=== PATIENT | female | born 1975 | race Caucasian/White ===

== ENCOUNTER 2016-07-17 21:47 | Emergency (ER) | payer BC ==
[~2016-07-17] VITALS: Ht 157.5 cm; Wt 78.0 kg
[2016-07-17 22:16] LABS: NEG OBC UR NEG; POS OBC UR POS
--- NOTE | 2016-07-17 22:19 | ED.ADGEN ---
Past Medical History Past Medical History: No Pertinent History Past Surgical History: No Surgical History Alcohol Use: None Drug Use: None Adult General Chief Complaint Chief Complaint: HIP PAIN HPI HPI Patient is a 41 year old woman, with no significant past medical history, who presents to the emergency department with a complaint of right-sided lower back pain, radiating into her right leg, occurring intermittently over the past 3 weeks. Patient denies any injuries, any weakness numbness or tingling, any abdominal pain, any urinary complaints, any chest pain or shortness breath, any fevers or chills, denies any previous symptoms. 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 She states that the pain is worse after activity, that occasionally is located only in her lower back and buttock area, but occasionally radiates down into her right lateral leg , into her knee, describes it as a sharp sensation. No changes in bowel or bladder control, no other complaints. She states she's been using a Profen intermittently for pain, last dose of either Profen was last night. Denies any drugs, alcohol or cigarettes, no recent travel or surgery. No other concerning history or activities reported. Review of Systems Review of Systems Constitutional: Denies fever or chills. [] Eyes: Denies change in visual acuity. [] HENT: Denies nasal congestion or sore throat. [] Respiratory: Denies cough or shortness of breath. [] Cardiovascular: Denies chest pain or edema. [] GI: Denies abdominal pain, nausea, vomiting, bloody stools or diarrhea. [] : Denies dysuria. [] Musculoskeletal: Right-sided lower back pain radiating into the right lower extremity. Integument: Denies rash. [] Neurologic: Denies headache, focal weakness or sensory changes. [] Endocrine: Denies polyuria or polydipsia. [] Lymphatic: Denies swollen glands. [] Psychiatric: Denies depression or anxiety. [] Current Medications Current Medications Current Medications Medications (Trade) Dose Ordered Sig/Tanja Start Time Stop Time Status Last Admin Dose Admin Cyclobenzaprine HCl (Flexeril) 10 mg 1X ONCE 07/17/16 22:30 07/17/16 22:31 DC 07/17/16 22:23 10 MG Naproxen (Naprosyn) 250 mg 1X ONCE 07/17/16 22:30 07/17/16 22:31 DC 07/17/16 22:24 250 MG Allergies Allergies Allergies Coded Allergies Type Severity Reaction Last Updated Verified No Known Drug Allergies 07/17/16 No Physical Exam Physical Exam Constitutional: Well developed, well nourished, no acute distress, non-toxic appearance. [] HENT: Normocephalic, atraumatic, bilateral external ears normal, oropharynx moist, no oral exudates, nose normal. [] Eyes: PERRLA, EOMI, conjunctiva normal, no discharge. [] Neck: Normal range of motion, no tenderness, supple, no stridor. [] Cardiovascular:Heart rate regular rhythm, no murmur, S1, S2, rubs or gallops. [] Lungs & Thorax: Bilateral breath sounds clear to auscultation , no wheezing, rhonchi, rales. No chest wall tenderness or crepitus. [] Abdomen: Bowel sounds normal, soft, no tenderness, no rebound, rigidity, no guarding, no masses, no pulsatile masses. [] Skin: Warm, dry, no erythema, no rash. [] Back: No no midline tenderness, no step-offs or deformities, no CVA tenderness. [Patient with tenderness palpation in the puriform us region, and in the paraspinal muscles in the lower lumbar spine on the right, reproducible pain with palpitation of the form us. Extremities: No tenderness, no cyanosis, no clubbing, ROM intact, no edema. [] Neurologic: Alert and oriented X 3, normal motor function, normal sensory function, no focal deficits noted. [] Psychologic: Affect normal, judgement normal, mood normal. [] Current Patient Data Vital Signs Vital Signs Date Time Temp Pulse Resp B/P Pulse Ox O2 Delivery O2 Flow Rate FiO2 07/17/16 22:00 97.8 80 16 159/79 97 Room Air 97.8 Lab Values Laboratory Tests Test 07/17/16 22:04 Urine Collection Type Unknown Urine Color Yellow Urine Clarity Clear Urine pH 5.5 Urine Specific [place] 1.025 Urine Protein Negativemg/dL (NEG-TRACE) Urine Glucose (UA) Negativemg/dL (NEG) Urine Ketones (Stick) Negativemg/dL (NEG) Urine Blood Trace (NEG) Urine Nitrite Negative (NEG) Urine Bilirubin Negative (NEG) Urine Urobilinogen Dipstick 0.2mg/dL (0.2 mg/dL) Urine Leukocyte Esterase Negative (NEG) Urine RBC 0/HPF (0-2) Urine WBC 0/HPF (0-4) Urine Squamous Epithelial Cells Few/LPF Urine Bacteria Few/HPF (0-FEW) Urine Mucus Marked/LPF Urine Test Negative (NEG) EKG EKG Not indicated. [] Radiology/Procedures Radiology/Procedures Lumbar spine: Three-view: Patient with evidence of degenerative changes, no acute fracture, volume loss, spacing abnormalities, subluxation, soft tissue or bony abnormalities identified. As interpreted by me. [] Course & Med Decision Making Course & Med Decision Making Pertinent Labs and Imaging studies reviewed. (See chart for details) Patient's examination and history is consistent with right-sided sciatica. No concerning history identified base of the patient's report, however due to the length of duration of symptoms, over 3 weeks, although has been intermittent, will obtain x-ray. Patient's test is negative, urinalysis reveals trace blood, which is consistent with patient's report that she is beginning her menses, which have been irregular over the past 2 months. Patient received cyclobenzaprine and and naproxen in the ED, states that she is feeling slightly better and reevaluation. X-ray reveals evidence of degenerative changes, with no acute fracture or other concerning findings identified. I did discuss these findings with patient, she'll be contacted via telephone if any new concerning findings are identified by radiology over read. Importance of following up with her primary care provider for additional evaluation, and potential physical therapy discussed in detail patient at bedside, as stated patient is ambulating without difficulty in the ED, and is agreeable to this plan. Will return to the ED if any new or concerning symptoms develop. Patient discharged home with prescription for cyclobenzaprine, naproxen, and plan as above. Dragon Disclaimer Dragon Disclaimer This electronic medical record was generated, in whole or in part, using a voice recognition dictation system. Departure Impression: Primary Impression: Acute right-sided back pain with sciatica Disposition: HOME, SELF-CARE Condition: IMPROVED Scripts Naproxen 250 Mg [id number] Mg PO BID PRN PAIN #10 Prov:FREDERIC CALVIN DO 07/17/16 Cyclobenzaprine Hcl 10 Mg [id number] Mg PO TID PRN PAIN #12 TAB Prov:FREDERIC CALVIN DO 07/17/16 FREDERIC CALVIN DO Jul 17, 2016 22:19
[2016-07-17 22:23] LABS: BILIRUBIN,URINE NEGATIVE (NEG); GLUCOSE,URINE NEGATIVE (NEG); NITRITE,URINE NEGATIVE (NEG); PH,URINE 5.5; PROTEIN,URINE NEGATIVE (NEG-TRACE); UROBILINOGEN,URINE 0.2 mg/dL (0.2 mg/dL)
[2016-07-17 22:27] LABS: BACTERIA,URINE FEW /HPF (0-FEW); RBC,URINE 0 /HPF (0-2); SQUAMOUS EPITHELIAL CELL,UR FEW /LPF; WBC,URINE 0 /HPF (0-4)
[2016-07-17] MEDS ORDERED: CYCLOBENZAPRINE 10 MG TABLET. PO ONE (22:30)
[2016-07-17] MEDS ORDERED: NAPROXEN 250 MG TABLET PO ONE (22:30)
[2016-07-17] MEDS ORDERED: NAPR250T2 PO (22:33)
[2016-07-17] MEDS ORDERED: CYCL10TA2 PO (22:33)
[2016-07-17 22:59] VITALS: BP 115/69
--- NOTE | 2016-07-18 11:10 | RAD ---
Three-view lumbar spine radiographs 07/17/2016 Clinical history: Worsening low back pain for the last 3 weeks. AP and 2 lateral digital radiographs of the lumbar spine were obtained. Very mild S-shaped curvature of the thoracic lumbar spine is seen. No fracture or subluxation of the lumbar vertebrae is seen. Degenerative changes are seen involving the lower thoracic and throughout the lumbar disc spaces consisting of varying degrees of disc space narrowing, vertebral endplate sclerosis and minimal to mild anterior and posterior vertebral body osteophyte formation. Degenerative changes are seen involving the facet joints of the lower lumbar spine. Impression: Degenerative changes are seen involving the lower thoracic and throughout the lumbar spine as outlined above. No acute osseous abnormality is seen.
== END 2016-07-17 23:00 | disposition home or self-care (01) ==
LOC: ER 21:47
DX: M54.41 Lumbago with sciatica, right side (principal)
CPT/HCPCS: 72100; 81001; 81025; 99285-25

== ENCOUNTER 2021-01-12 19:33 | Emergency (ER) | payer BC ==
[~2021-01-12 19:33] MED LIST: CYCL10TA2 PO; NAPR-699 PO
== END 2021-01-12 21:07 | disposition left against medical advice (07) ==
LOC: ER 19:33
DX: R10.9 Unspecified abdominal pain (principal); Z53.21 Procedure and treatment not carried out due to patient leaving prior to being seen by health care provider